=== PATIENT | female | born 1970 | race Hispanic/Latino ===

== ENCOUNTER 2024-07-23 00:38 | Emergency (ER) | payer OTHER ==
[~2024-07-23] VITALS: Ht 157.5 cm; Wt 86.2 kg
--- NOTE | 2024-07-23 00:44 | ERN ---
ED Note History of Present Illness Stated Complaint: COUGH Chief Complaint: Cough Time Seen by MD: 00:40 Time Seen by Midlevel: 00:40 Dictation: Ms. Calabrese 54-year-old female with history of obesity and type 2 diabetes who presented to the emergency department for evaluation of cough. She reports 4-5 days of dry cough, wheezing, body aches, fatigue, and general weakness. She s tates she went to her PCP's office on Friday and tested negative for influenza and COVID. She denies having fever, chills, sore throat, rhinorrhea, neck pain, chest pain, palpitations, edema, abdominal pain, nausea, vomiting, diarrhea, dysuria, headache, or dizziness. At triage noted and elevated blood pressure reading. She states that a few months ago she was told she was able to discontinue her antihypertensive medication when she switched to a less stressful job. Allergies: Coded Allergies: No Known Drug Allergies (Verified Allergy, 03/23/13) Home Meds Active Scripts Azithromycin (Azithromycin) 250 Mg Tablet, 1 TAB PO AD for 5 Days, #6 TAB 0 Refills 2 the first day followed by 1 for days 2-5 Prov:JESSICA HUNTER NP 07/23/24 Albuterol Sulfate (Ventolin Hfa) 90 Mcg Hfa.aer.ad, 2 PUFF IH Q4HPRN PRN for wheezing for 30 Days, #18 GM 0 Refills Prov:JESSICA HUNTER JAVA TE[employer]ICAL [employer]CH[employer] 07/23/24 Past Medical History PSYCH History: no pertinent psych hx Social History: Negative, Lives with family History: Not Applicable RN Note Reviewed/Agreed w/PFSH: Yes Review of System Dictation REVIEW OF SYSTEMS: CONSTITUTIONAL: Patient denies fevers, chills, sweats and weight changes. Reports fatigue and general weakness EYES: Patient denies any visual symptoms. EARS, NOSE, AND THROAT: No difficulties with hearing. No symptoms of rhinitis or sore throat. CARDIOVASCULAR: Patient denies chest pains, palpitations, orthopnea and paroxysmal nocturnal dyspnea. RESPIRATORY: Reports nonproductive cough with wheezing and shortness of breath GI: No nausea, vomiting, diarrhea, constipation, abdominal pain, hematochezia or melena. : No urinary hesitancy or dribbling. No nocturia or urinary frequency. No abnormal urethral discharge. MUSCULOSKELETAL: No myalgias or arthralgias. NEUROLOGIC: No chronic headaches, no seizures. Patient denies numbness, tingling or weakness. PSYCHIATRIC: Patient denies problems with mood disturbance. No problems with anxiety. ENDOCRINE: No excessive urination or excessive thirst. DERMATOLOGIC: Patient denies any rashes or skin changes. Initial Vital Sign VS Vital Signs Date Time Temp Pulse Resp B/P (MAP) Pulse Ox O2 Delivery O2 Flow Rate FiO2 07/23/24 00:39 97.9 65 18 170/100 98 Room Air Physical Exam Dictation Vital signs: Reviewed. Afebrile Constitutional: No acute distress. Non-toxic appearing. Head/Face: Normocephalic, atraumatic. Eyes: Periorbital areas with no swelling, redness, or edema. Lids and lashes are normal. Conjunctival injection is absent. Sclera anicteric. Pupils equal, round, reactive to light. ENT: Pinnas intact and no signs of trauma or erythema. Ear canals clear and no discharge. TMs no erythema. No nasal discharge or bleeding noted. Oropharynx with no exudate, redness, swelling, masses, exudates, or evidence of obstruction. Uvula midline. Mucous membranes. Slightly dry Neck: Trachea midline, no masses palpated, and no cervical lymphadenopathy. No swelling. Supple, full range of motion. Chest/Axilla: No tenderness, no crepitus, no paradoxical movement, no retractions. Cardiovascular: Regular rate, regular rhythm, no murmur, no gallops. Symmetric pulses. No peripheral edema. BP elevated 170/100 (no longer taking antihypertensive agent) Respiratory: Respirations even and unlabored. Lung sounds diminished right lower lobe with expiratory wheezes. Dry cough noted Room air SpO2 98% Gastrointestinal: Obese.. No distention is appreciated. Bowel sounds are normal. No mass or organomegaly . There is no tenderness. No rebound. No rigidity. No voluntary or involuntary guarding. No Stanton's sign. Neurological: Normal speech, gross motor function intact, gross sensory function intact. No focal weakness/Paresthesia. Musculoskeletal/Extremities: All extremities have full range of motion, no pain or tenderness on palpation. Symmetric pulses. Integumentary: Intact. Skin is normal color, warm and dry. Cap refill less than 2 seconds. Results (Laboratory/Radiology) X-RAY Comment: CXR with possible early infiltrates as interpreted by myself ED Course ED Course Orders Procedure Category Date Status Time Ipratropium/Albuterol PHA 07/23/24 Complete Neb (Duoneb) 01:00 Chest 1vw RAD 07/23/24 Taken 00:40 Dexamethasone 4mg/Ml PHA 07/23/24 Complete 1ml Vial (Dexametha 02:00 Current Medications Medications (Trade) Dose Ordered Sig/Jessica Route PRN Reason Start Time Stop Time Status Last Admin Dose Admin Albuterol (DUOneb) 1 UDVIAL ONCE ONCE IH 07/23/24 01:00 07/23/24 01:01 DC 07/23/24 00:58 Dexamethasone Sodium Phosphate (dexaMETHasone 4MG/ML 1ML VIAL) 8 mg ONCE ONCE IM 07/23/24 02:00 07/23/24 02:01 DC 07/23/24 01:55 Vital Signs Date Time Temp Pulse Resp B/P (MAP) Pulse Ox O2 Delivery O2 Flow Rate FiO2 07/23/24 00:58 64 18 07/23/24 00:39 97.9 65 18 170/100 98 Room Air Uneventful ED course. Patient slightly anxious upon arrival with elevated blood pressure 170/100; afebrile with room air SpO2 98%. Lung sounds with expiratory wheezes. She received DuoNeb and stated that she felt much better following treatment. Chest x-ray with possible early pulmomary infiltrates. She also received a dose dexamethasone 8 mg IM. Repeat blood pressure improved. SpO2 remains greater than 96%. Findings were discussed with patient and all questions were answered. Medical Decision Making MDM MDM: Differential diagnosis: Asthma exacerbation, CPAP, hypoxia Rationale: Tests considered and ordered secondary to shared decision making include: Chest x-ray Previous outside records reviewed: Old ER visits. Risk of complication and/or morbidity or mortality of patient management: None Medications-Per medication reconciliation Need for hospitalization: Patient does not meet criteria for hospitalization. Need for emergency major/minor surgery: No There are no social concerns with this patient. Prescription drug management: Albuterol MDI, azithromycin Prescriptions will include symptomatic care Patient's prior external medical records from other ER visits were reviewed by me as indicated. Prior testing and results from previous visits were reviewed. Prior tests were taken into account with medical decision making and resource utilization, independent historian/historians were used to obtain complete medical history. I independently interpreted the test that were performed, results were reviewed by me and considered findings on radiology if ordered. Medical management and examination interpretation discussions were had by me with other qualified healthcare professionals as indicated for the patient's care. DX & DISP Disposition: Discharge Departure Impression: Primary Impression: URI, acute Additional Impressions: Wheezing, Possible early pulmonary infiltrates Condition: Stable Scripts Azithromycin (Azithromycin) 250 Mg Tablet 1 TAB PO AD for 5 Days, #6 TAB 0 Refills 2 the first day followed by 1 for days 2-5 Prov: JESSICA HUNTER NP 07/23/24 Albuterol Sulfate (Ventolin Hfa) 90 Mcg Hfa.aer.ad 2 PUFF IH Q4HPRN PRN for wheezing for 30 Days, #18 GM 0 Refills Prov: JESSICA HUNTER NP 07/23/24 Additional Instructions: Rest. Drink plenty of fluids. Isolate at home until symptoms are subsiding and you have been fever free times 24 hours. Use albuterol inhaler two puffs every 4 hours as needed for wheezing/chest tightness. Start azithromycin 250 mg. Take two tablets on day one one tablet daily for the following four days. Follow up with your primary care physician. Return to the emergency department for any worsening of symptoms or concerns. Referrals: SHANKAR HARGROVE MD (PCP) Time of Disposition: 01:46 JESSICA HUNTER NP Jul 23, 2024 00:44
[2024-07-23 00:58] VITALS: PULSE 64; RESP 18
[2024-07-23] MEDS: IpraTROPium/alBUTERol SULFATE 3 ML SOLUTION IH ONE (00:58)
--- NOTE | 2024-07-23 01:27 | NUR ---
REPORT TO PORTIA OCHOA
[2024-07-23] MEDS ORDERED: ALBU18HF7 IH (01:44)
[2024-07-23] MEDS ORDERED: AZIT250T9 PO (01:44)
[2024-07-23] MEDS: dexaMETHasone SOD PHOSPHATE 4 MG/ML 1ML VIAL IM ONE (01:55)
[2024-07-23 02:24] VITALS: BP 159/87; PULSE 76; RESP 19; TEMP 98.2; O2SAT 99
--- NOTE | 2024-07-23 08:14 | HMCIMG ---
CHEST 1VW REASON: cough, shortness of breath COMPARISON: None. FINDINGS: Lungs are clear. Heart size is normal. There is no pulmonary vascular congestion. Mediastinum and bony thorax appear unremarkable. IMPRESSION: 1. Normal chest x-ray.
== END 2024-07-23 02:25 | disposition home or self-care (01) ==
LOC: EDH 00:38
DX: J06.9 Acute upper respiratory infection, unspecified (principal); Z79.899 Other long term (current) drug therapy
CPT/HCPCS: 99283; 71045; 96372; 94640; J1100